=== PATIENT | female | born 1975 | race Caucasian/White ===

== ENCOUNTER 2025-05-07 15:16 | Outpatient (AMB) | payer OTHER, SELFPAY ==
--- NOTE | 2025-05-07 15:17 | MHC.OFFVIS ---
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 She presents today for a migraine evaluation. She was recently placed on an estrogen patch for symptoms including mood changes, low energy, sleep disruption, and changes to her menstrual flow. She tells me today that in regards to her migraine history, she had her first migraine at age 24. This migraine did include visual aura described as a blind spot in her vision. For many years, she would only have a migraine episode with aura every few years. Over the course of the last several years however her migraine episodes have been more frequent. She has been experiencing a migraine episode monthly leading up to her menses. Headaches generally would last 2 days. She had associated sensitivity to light and sound, dizziness , and irritability. She did not have any nausea. She will occasionally have aura including a blind spot in her vision that preceded her headaches. These vision changes would last less than a half hour. Her pain was generally bitemporal and bifrontal. Rarely she had some occipital pain. Her migraine pain feels like a pulsating sensation. Headaches were at times awakening her out of sleep. No OTCs were helpful but she would carry excedrine with her which would take the edge off and prevent escalation. She started HRT about 1 month ago and this month did not experience a migraine with her menses. 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 Also lives with and 2 cats. Stressors: Home and work balance Hydration: At least 8 8oz glasses per day Caffeine intake: 1 cup coffee in the morning Alcohol intake: 2 glasses of wine per week Substance use: None Tobacco use:None Last eye exam:About 4 months ago Last dental visit: About 3 months ago. Does have a history of clenching History of head injury: None Family planning considerations: No plans to become Past medication trials: None Prior workup: None PFSH Medical History (Updated 05/07/25 @ 15:45 by Luzma Bal CNP) HLD (hyperlipidemia) Migraine Surgical History (Updated 05/07/25 @ 15:24 by Teagan Aviles CMA) H/O oral surgery Family History (Updated 05/07/25 @ 15:25 by Teagan Aviles CMA) Mother HLD (hyperlipidemia) Depression A-fib Father No problems noted. Social History (Updated 05/07/25 @ 15:25 by Teagan Aviles CMA) Alcohol intake: current Comment: Patient has wine and cocktails two times a week Patient Tobacco Use Status: Never used Tobacco Review of Systems Const All systems reviewed & are unremarkable except as noted in HPI and below Physical Exam Vital Signs: Last Vital Signs Pulse 87 05/07/25 15:26 Resp 16 05/07/25 15:26 BP 110/68 05/07/25 15:26 Pulse Ox 98 05/07/25 15:26 BMI result Body Mass Index 29.0 Const General: cooperative, healthy appearing, comfortable and no acute distress Nutritional Appearance: well nourished Orientation/consciousness: patient oriented x3 Limitations: no limitations HEENT Head: Yes normal to inspection and Yes normocephalic Eyes General: appearance normal, both eyes and all related structures Visual Parra: normal visual parra by confrontation Alignment and Position: alignment normal Periorbital: periorbital findings normal Eyelids: Yes eyelids normal Conjunctivae: conjunctivae normal Sclerae: sclerae normal Back/Spine/Pelvis Other: No occipital notch tenderness. There are trigger points to the bilateral trapezius muscles R>L. Neuro General: patient oriented x3 and deep tendon reflexes 2+ bilaterally Cranial nerves: Yes CN's II-XII intact bilaterally and Yes Facial sensation intact/muscles of mastication intact Cognition (Neuro): normal cognition Gait exam (Neuro): Normal gait present Motor exam (neuro): 5/5 motor strength present throughout and no tremor noted Sensory Exam: double simultaneous stimulation for sensation normal Romberg Test: Negative Pupils: Normal pupillary reactivity/response: bilateral Psych Appearance: grossly normal Mental Status: mental status grossly normal Speech and movement: Normal speech and movement present and Clear speech present Affect: normal affect Attitude: cooperative Thought process: Normal thought process present Thought content: Normal thought content present Insight: Good insight present (Psych) Judgement: Good judgement present (Psych) Assessment & Plan Assessment & Plan (1) Migraine with aura and without status migrainosus, not intractable: Code(s): G43.109 - Migraine with aura, not intractable, without status migrainosus Category: Medical Plan: . Kerri Camarena is a 49-year-old female patient who has a history of migraine but otherwise in generally good health. She presents today for a migraine evaluation. Migraines have historically followed her menstrual cycle. She was not having breakthrough migraine throughout the month. Recently, she was started on hormone replacement therapy transdermally and had did not have any migraines leading up to her menses this cycle. We discussed a trial of a mini prophylaxis for menstrually related migraines which she is open to. We also however discussed continuing on her hormone replacement therapy and if she does not have any further migraines she can hold off on the naratriptan and use it only as an abortive measure if needed. We also discussed use of magnesium 400 mg nightly which he will purchase [id number]. Her exam was normal and history overall not concerning aside from history of migraines awakening her from sleep. Because of this, I will obtain a baseline MRI of the brain without contrast. I will see her again in 2 months or sooner if needed. -Take magnesium supplementation daily at bedtime (400mg nightly)- will purchase OTC -Naratriptan for abortive therapy and or for a mini prophylaxis -MRI vince w/o contrast -Follow-up in 2 months or sooner if needed. Pt advised to sign up for the patient portal for ease of communication Coding Level of Care Code New Pt Level 4 (97928) Diagnoses Migraine with aura and without status migrainosus, not intractable G43.109
[2025-05-07 15:26] VITALS: BP 110/68; PULSE 87; RESP 16; O2SAT 98; BMI 29.0
== END 2025-05-07 16:03 | disposition home or self-care (01) ==
PROVIDERS: Visit Provider Nurse Practitioner
DX: G43.109 Migraine with aura, not intractable, without status migrainosus (principal)
CPT/HCPCS: 99204

== ENCOUNTER 2025-07-02 15:40 | Outpatient (AMB) | payer OTHER, SELFPAY ==
[2025-07-02 15:46] VITALS: BP 124/70; PULSE 70; RESP 16; O2SAT 98; BMI 27.4
--- NOTE | 2025-07-02 15:46 | A.OFFVIS_ITS ---
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 She presents today for a migraine follow up visit. At the time over initial visit which was 05/07/2025, we had discussed her headache history which included her 1st migraine at age 24 which included visual auras described as a blind spot in her vision. For many years she would have only 1 migraine episode every few years but over the course of the last several years her migraine episodes have become more frequent and associated with her menstrual cycles. Migraines are often lasting 2 days associated light and sound sensitivity, dizziness, and irritability. She would not typically experience any nausea. Often her headaches would include a ?blind spot? in her vision which would procedure headaches. Head pain was generally bitemporal and bifrontal rarely with some occipital pain. Headaches were awakening out of sleep and therefore we did discuss imaging and I ordered an MRI of the brain. F or unclear reasons, this was never obtained. She is not sure that she ever received a call for this. She also had noted that she has been recently placed on an estrogen patch for symptoms including mood changes, low energy, sleep disruption, and changes to her menstrual flow. This had somewhat altered her menstrual migraines and she did have 1 cycle without a migraine. We discussed options for treatment at last visit. Because her migraines were relatively infrequent we opted to pursue naratriptan which can be used abortive daily and for a mini prophylaxis leading up to her menses. We discussed using it in both ways. I also recommended a trial of magnesium for headaches support as well. She has been taking magnesium 400 mg daily. She tells me today that since taking the magnesium 400 mg daily she has noticed that her migraines have been less severe. She does note that the magnesium has also been helping her anxiety as well. She has had 2 since the time of our last visit 1 of which lasted 2 days. She did take the naratriptan eventually and it worked within half an hour to get rid of her headache. She has not yet used it for a mini prophylaxis. 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 Also lives with and 2 cats. Stressors: Home and work balance Hydration: At least 8 8oz glasses per day Caffeine intake: 1 cup coffee in the morning Alcohol intake: 2 glasses of wine per week Substance use: None Tobacco use:None Last eye exam:About 4 months ago Last dental visit: About 3 months ago. Does have a history of clenching History of head injury: None Family planning considerations: No plans to become Past medication trials: None Prior workup: None PFSH Medical History (Updated 05/07/25 @ 16:15 by Luzma Bal CNP) HLD (hyperlipidemia) Migraine Surgical History (Updated 05/07/25 @ 15:24 by Teagan Aviles CMA) H/O oral surgery Family History (Updated 05/07/25 @ 15:25 by Teagan Aviles CMA) Mother HLD (hyperlipidemia) Depression A-fib Father No problems noted. Social History (Updated 05/07/25 @ 15:25 by Teagan Aviles CMA) Alcohol intake: current Comment: Patient has wine and cocktails two times a week Patient Tobacco Use Status: Never used Tobacco Review of Systems Const All systems reviewed & are unremarkable except as noted in HPI and below Physical Exam Vital Signs: Last Vital Signs Pulse 70 07/02/25 15:46 Resp 16 07/02/25 15:46 BP 124/70 07/02/25 15:46 Pulse Ox 98 07/02/25 15:46 Oxygen Delivery Method Room Air 07/02/25 15:46 BMI result Body Mass Index 27.4 Const General: cooperative, healthy appearing, comfortable and no acute distress Nutritional Appearance: well nourished Orientation/consciousness: patient oriented x3 Limitations: no limitations HEENT Head: Yes normal to inspection and Yes normocephalic Eyes General: appearance normal, both eyes and all related structures Visual Felder: normal visual felder by confrontation Alignment and Position: alignment normal Periorbital: periorbital findings normal Eyelids: Yes eyelids normal Conjunctivae: conjunctivae normal Sclerae: sclerae normal Back/Spine/Pelvis Other: No occipital notch tenderness. There are trigger points to the bilateral trapezius muscles R>L. Neuro General: patient oriented x3 Cranial nerves: Yes CN's II-XII intact bilaterally and Yes Facial sensation intact/muscles of mastication intact Cognition (Neuro): normal cognition Gait exam (Neuro): Normal gait present Motor exam (neuro): no tremor noted Sensory Exam: double simultaneous stimulation for sensation normal Romberg Test: Negative Pupils: Normal pupillary reactivity/response: bilateral Psych Appearance: grossly normal Mental Status: mental status grossly normal Speech and movement: Normal speech and movement present and Clear speech present Affect: normal affect Attitude: cooperative Thought process: Normal thought process present Thought content: Normal thought content present Insight: Good insight present (Psych) Judgement: Good judgement present (Psych) Assessment & Plan Assessment & Plan (1) Migraine with aura and without status migrainosus, not intractable: Code(s): G43.109 - Migraine with aura, not intractable, without status migrainosus Category: Medical Plan Nicol is a 49-year-old female patient who has a history of migraine but otherwise in generally good health. She presents today for a migraine follow up visit. Overall, her migraines have been less intense and severe with initiation of the magnesium 400 mg nightly. She does feel that this has helped her anxiety. The naratriptan has been helpful to stop her migraine within a half an hour or so and she is tolerating it well. We will continue this regimen. She is also aware that she can use her naratriptan as a mini prophylaxis which she has not completed yet. I did encourage her to try this to avoid future menstrual related migraines. She does agree. She did not get her MRI completed at last visit and we will look into this. We will still pursue the MRI for her reports of awakening from sleep with her m igraines. -schedule MRI of the brain as previously ordered -continue use of naratriptan for acute therapy and as a mini prophylaxis for menstrual migraine -continue magnesium 400 mg nightly -follow up in 3 months or sooner if needed Coding Level of Care Code Est Pt Level 3 (03854) Diagnoses Migraine with aura and without status migrainosus, not intractable G43.109
== END 2025-07-02 16:08 | disposition home or self-care (01) ==
LOC: HO.HSM 15:41
PROVIDERS: Visit Provider Nurse Practitioner
DX: G43.109 Migraine with aura, not intractable, without status migrainosus (principal)
CPT/HCPCS: 99213